=== PATIENT | male | born 1990 | race Caucasian/White ===

== ENCOUNTER 2022-11-04 12:20 | Emergency (ER) | payer OTHER ==
[~2022-11-04 12:20] MED LIST: VANCOMYCIN 1,500 MG in SODIUM CHLORIDE 0.9% 500 ML 500 ML IVPB SCH
[2022-11-04 12:28] VITALS: RESP 22; TEMP 98.1
[2022-11-04] MEDS ORDERED: VANCOMYCIN IV PER PHARMACY 1 EACH MISC MISCELLANE PRN (12:31)
[2022-11-04] MEDS ORDERED: AMPICILLIN-SULBACTAM 3 GM in SODIUM CHLORIDE 0.9% 100 ML IVPB STA (12:31)
[2022-11-04] MEDS ORDERED: DEXAMETHASONE SOD PHOSPHATE 10 MG/ML 1 ML VIAL IVP STA (12:31)
[2022-11-04] MEDS ORDERED: SODIUM CHLORIDE 0.9% 1,000 ML IV ONE (12:35)
[2022-11-04] MEDS ORDERED: SODIUM CHLORIDE 0.9% 500 ML 500 ML IV ONE (12:35)
[2022-11-04] MEDS ORDERED: SODIUM CHLORIDE 0.9% 1,000 ML IV SCH (12:45)
[2022-11-04] MEDS ORDERED: VANCOMYCIN 1,500 MG in SODIUM CHLORIDE 0.9% 500 ML 500 ML IVPB ONE (12:45)
[2022-11-04 12:48] LABS: HGB 16.9 gm/dL (13.0-17.5); MCH 31.7 pg (25.0-35.0); MCHC 35.2 g/dL (31.0-37.0); MCV 90.1 fL (80.0-100.0); Mean Platelet Volume 9.5; Platelet Count 138 k/uL (150-450); RBC 5.32 m/uL (4.30-5.90); WBC 29.3 k/uL (3.8-10.6)
--- NOTE | 2022-11-04 13:01 | ED ---
ENT HPI - General Source: patient, family, RN notes reviewed Mode of arrival: ambulatory Limitations: no limitations <Bossman You - Last Filed: 11/04/22 14:26> - General Source: patient, family Limitations: no limitations - History of Present Illness MD complaint: tooth pain, difficulty swallowing, other (Swelling of the head and face) -: days(s) (Worse today) Severity: severe Context- Dental: history of dental caries, poor dental care Associated Symptoms: toothache (Resolved) <Woody Owusu - Last Filed: 11/04/22 15:42> - General Chief complaint: Dental/Oral Stated complaint: Facial swelling Time Seen by Provider: 11/04/22 12:24 - History of Present Illness Initial comments: 32-year-old male presents emergency Department chief complaint of facial swelling, facial pain. Patient states that he has very poor dentition states that he started with an infection proximally 4 days ago but states there was in his lower jaw region but now has significant swelling on the left side of his face he states he notices breathing is change and became very harsh. Patient states that he is not having difficulty breathing no currently. Patient reports no reported fever there is some drainage from his mouth. Patient states he feels swelling down into his chest. Patient has known drug ALLERGIES. Patient states that he attempted go to work today because he felt that was not apparent. Patient also complains of this infection off. He states it seemed to change today from the emergency department. (Bossman You) - Related Data Home Medications Medication Instructions Recorded Confirmed No Known Home Medications 11/04/22 11/04/22 Allergies Allergy/AdvReac Type Severity Reaction Status Date / Time No Known Allergies Allergy Verified 11/04/22 13:37 Review of Systems ROS Other: All systems not noted in ROS Statement are negative. <Bossman You - Last Filed: 11/04/22 14:26> ROS Other: All systems not noted in ROS Statement are negative. Constitutional: Denies: fever Eyes: Denies: eye pain ENT: Reports: as per HPI, dental pain. Denies: ear pain Respiratory: Reports: as per HPI, dyspnea Cardiovascular: Denies: chest pain Endocrine: Denies: fatigue Gastrointestinal: Denies: abdominal pain <Woody Owusu - Last Filed: 11/04/22 15:42> ROS Statement: Those systems with pertinent positive or pertinent negative responses have been documented in the HPI. Past Medical History Additional Past Medical History / Comment(s): ADHD, dental disease History of Any Multi-Drug Resistant Organisms: None Reported Past Surgical History: No Surgical Hx Reported Past Psychological History: No Psychological Hx Reported Smoking Status: Current every day smoker Past Alcohol Use History: Occasional Past Drug Use History: Marijuana <Bossman You - Last Filed: 11/04/22 14:26> General Exam Limitations: no limitations General appearance: alert, in no apparent distress Head exam: Present: atraumatic, normocephalic, normal inspection Eye exam: Present: normal appearance, PERRL, EOMI. Absent: scleral icterus, conjunctival injection, periorbital swelling ENT exam: Present: mucous membranes moist, other. Absent: normal oropharynx (Edentulous, there is significant swelling the left side of his face, cheek, mandibular region there is no sublingual tenderness or notable abscess. There is tenderness of the face there is some purulent drainage noted in the mouth.) Neck exam: Present: tenderness, lymphadenopathy, other. Absent: normal inspection (Swelling noted), meningismus Respiratory exam: Present: normal lung sounds bilaterally, stridor, chest wall tenderness, other. Absent: respiratory distress, wheezes, rales, rhonchi Cardiovascular Exam: Present: normal rhythm, tachycardia, normal heart sounds. Absent: systolic murmur, diastolic murmur, rubs, gallop, clicks <Bossman You - Last Filed: 11/04/22 14:26> General appearance: alert Eye exam: Present: normal appearance ENT exam: Present: other (Patient does have significant left mandibular swelling that extends to the submental region.) Neck exam: Present: other (Patient does have swelling, and the submental region and anterior neck extending towards the chest) Respiratory exam: Present: other (Patient does have some mild stridor) <Woody Owusu - Last Filed: 11/04/22 15:42> Course <Bossman You - Last Filed: 11/04/22 14:26> <Woody Owusu - Last Filed: 11/04/22 15:42> Vital Signs 11/04/22 11/04/22 11/04/22 12:21 13:00 14:20 Temperature 98.1 F Pulse Rate 131 H 102 H Respiratory 22 22 Rate Blood Pressure 103/74 138/117 O2 Sat by Pulse 97 98 Oximetry Fraction of 100 Inspired Oxygen (FIO2) 11/04/22 14:28 Temperature Pulse Rate Respiratory Rate Blood Pressure O2 Sat by Pulse Oximetry Fraction of 100 Inspired Oxygen (FIO2) - Reevaluation(s) Reevaluation #1: Patient was immediately evaluated, started on IV antibodies, Decadron, IV fluids, labs CT was ordered 11/04/22 13:56 (Bossman You) 11/04/22 13:38 Patient was seen immediately after being evaluated by physician financial legal assistant. Case was discussed with ENT, Dr. Angel who does agree with care at this time and computed tomography scan. He does request call back. Case was again discussed with Dr. Angel who agrees with antibiotic coverage. He does again recommend transfer. Case discussed with Dr. Cowart with anesthesiology who will come evaluate 11/04/22 13:46 SUPERVISORY NOTE: I have reviewed all documentation, results, and performed the MDM in its entirety, which constitutes a substantive portion of the visit. I did speak with Dr. Gonzales from [facility] who will accept transfer. 11/04/22 14:24 Patient did have awake intubation by anestesia 11/04/22 15:39 I was prepared for emergent cricothyrotomy if necessary and was present during intubation. Total critical care time provided by myself 33 minutes (Woody Owusu) Medical Decision Making - Lab Data Result diagrams: 11/04/22 12:25 11/04/22 12:25 - EKG Data -: EKG Interpreted by Mo <Bossman You - Last Filed: 11/04/22 14:26> - Lab Data Result diagrams: 11/04/22 12:25 11/04/22 12:25 <Woody Owusu - Last Filed: 11/04/22 15:42> - Medical Decision Making Was pt. sent in by a medical professional or institution (, PA, TITLE CAMERA OPERATOR, urgent care, hospital, or senior living...) When possible be specific @ -No Did you speak to anyone other than the patient for history (EMS, parent, family, police, friend...)? What history was obtained from this source @ -Mother providing past medical history Did you review nursing and triage notes (agree or disagree)? Why? @ -I reviewed and agree with nursing and triage notes Were old charts reviewed (outside hosp., previous admission, EMS record, old EKG , old radiological studies, urgent care reports/EKG's, senior living records)? Report findings @ -No old charts were reviewed Differential Diagnosis (chest pain, altered mental status, abdominal pain women, abdominal pain men, vaginal bleeding, weakness, fever, dyspnea, syncope, headache, dizziness, GI bleed, back pain, seizure, CVA, palpatations, mental health, musculoskeletal)? @ -Ludwigs angina, dental abscess, cellulitis, airway compromise, EKG interpreted by me (3pts min.). @ -As above X-rays interpreted by me (1pt min.). @ -Chest x-ray shows post intubation CT interpreted by me (1pt min.). @ -CT soft tissue shows diffuse soft tissue cellulitis with left facial extension and into the base of the tongue, left parapharyngeal space concerning for necrotizing infection, there is airway compromise at the level of the thyroid cartilage there is an abscess at the level of the left masseter U/S interpreted by me (1pt. min.). @ -None done What testing was considered but not performed or refused? (CT, X-rays, U/S, labs)? Why? @ -None What meds were considered but not given or refused? Why? @ -None Did you discuss the management of the patient with other professionals (professionals i.e. , PA, TITLE CAMERA OPERATOR, lab, RT, psych nurse, social work manager, budget controller, teacher, animal park code enforcement officer, casework manager)? Give summary @ -ENT for consult regarding patient's facial swelling, airway compromise. Case also discussed with anesthesia, [facility] for transfer for ENT, [facility] Was smoking cessation discussed for >3mins.? @ -No Was critical care preformed (if so, how long)? @ -35mins Were there social determinants of health that impacted care today? How? (Homelessness, low income, unemployed, alcoholism, drug addiction, transportation, low edu. Level, literacy, decrease access to med. care, long-term, rehab)? @ -No Was there de-escalation of care discussed even if they declined (Discuss DNR or withdrawal of care, Hospice)? DNR status @ -No What co-morbidities impacted this encounter? (DM, HTN, Smoking, COPD, CAD, Cancer, CVA, ARF, Chemo, Hep., AIDS, mental health diagnosis, sleep apnea, morbid obesity)? @ -None Was patient admitted / discharged? Hospital course, mention meds given and route, prescriptions, significant lab abnormalities, going to OR and other pert inent info. @ -Transferred to [facility] - immediately upon arrival to the emergency department room patient was evaluated and was noted to have some stridorous breathing, patient noted to have significant swelling of the left side of his face, submandibular submental space patient immediately had IV placed in which IV antibiotics were ordered including Unasyn, vancomycin and Decadron was given secondary to swelling and concern for airway swelling. Patient was not complaining of any difficulty breathing at that time other than the harsh sound. Patient did have full set of labs, CT ordered medications were started patient sent to CT. CT shows extensive abscess, facial swelling, necrotizing infection. My attending Dr. Owusu stated immediately that the patient and contacted ENT after evaluation and discuss case twice with ENT. Case is discussed with [facility] for admission. Anesthesia was contacted regarding patient's airway for intubation given airrway swelling, and compromise. Patient was intubated by anesthesia there was complete occlusion of airway Undiagnosed new problem with uncertain prognosis? @ -YES] Drug Therapy requiring intensive monitoring for toxicity (Heparin, Nitro, Insulin, Cardizem)? @ -No Were any procedures done? @ -No Diagnosis/symptom? @ -Necrotizing facial infection Acute, or Chronic, or Acute on Chronic? @ -Acute Uncomplicated (without systemic symptoms) or Complicated (systemic symptoms)? @ -Complicated Side effects of treatment? @ -No Exacerbation, Progression, or Severe Exacerbation? @ -No Poses a threat to life or bodily function? How? (Chest pain, USA, SD, pneumonia, PE, COPD, DKA, ARF, appy, cholecystitis, CVA, Diverticulitis, Homicidal, Suicidal, threat to staff... and all critical care pts) @ -Yes patient has necrotizing facial infection Diagnosis/symptom? @ -Dental abscess Acute, or Chronic, or Acute on Chronic? @ -Acute Uncomplicated (without systemic symptoms) or Complicated (systemic symptoms)? @ -Complicated Side effects of treatment? @ -none Exacerbation, Progression, or Severe Exacerbation @ -no Poses a threat to life or bodily function? @ -Yes Diagnosis/symptom? @ -Airway compromise Acute, or Chronic, or Acute on Chronic? @ -Acute Uncomplicated (without systemic symptoms) or Complicated (systemic symptoms)? @ -Complicated Side effects of treatment? @ -none Exacerbation, Progression, or Severe Exacerbation] @ -no Poses a threat to life or bodily function? @ -Yes (Bossman You) - Lab Data Lab Results 11/04/22 11/04/22 11/04/22 Range/Units 12:25 12:25 12:25 WBC 29.3 H (3.8-10.6) k/uL RBC 5.32 (4.30-5.90) m/uL Hgb 16.9 (13.0-17.5) gm/dL Hct 48.0 (39.0-53.0) % MCV 90.1 (80.0-100.0) fL MCH 31.7 (25.0-35.0) pg MCHC 35.2 (31.0-37.0) g/dL RDW 12.0 (11.5-15.5) % Plt Count 138 L (150-450) k/uL MPV 9.5 Neutrophils % (Manual) 78 % Band Neuts % (Manual) 14 % Lymphocytes % (Manual) 3 % Monocytes % (Manual) 4 % Myelocytes % 1 % Neutrophils # (Manual) 26.90 H (1.3-7.7) k/uL Lymphocytes # (Manual) 0.88 L (1.0-4.8) k/uL Monocytes # (Manual) 1.17 H (0-1.0) k/uL Myelocytes # (Manual) 0.29 H (0) k/uL Nucleated RBCs 0 (0-0) /100 WBC Manual Slide Review Performed Toxic Granulation Present Toxic Vacuolation Present Sodium 139 (137-145) mmol/L Potassium 3.3 L (3.5-5.1) mmol/L Chloride 94 L (98-107) mmol/L Carbon Dioxide 31 H (22-30) mmol/L Anion Gap 14 mmol/L BUN 37 H (9-20) mg/dL Creatinine 1.55 H (0.66-1.25) mg/dL Est GFR (CKD-EPI)AfAm 68 (>60 ml/min/1.73 sqM) Est GFR (CKD-EPI)NonAf 59 (>60 ml/min/1.73 sqM) Glucose 112 H (74-99) mg/dL Lactic Ac Sepsis Rflx Plasma Lactic Acid Gurvinder 3.5 H* (0.7-2.0) mmol/L Calcium 9.2 (8.4-10.2) mg/dL Total Bilirubin 1.7 H (0.2-1.3) mg/dL AST 37 (17-59) U/L ALT 24 (4-49) U/L Alkaline Phosphatase 83 (38-126) U/L Total Protein 7.0 (6.3-8.2) g/dL Albumin 4.1 (3.5-5.0) g/dL 11/04/22 Range/Units 13:09 WBC (3.8-10.6) k/uL RBC (4.30-5.90) m/uL Hgb (13.0-17.5) gm/dL Hct (39.0-53.0) % MCV (80.0-100.0) fL MCH (25.0-35.0) pg MCHC (31.0-37.0) g/dL RDW (11.5-15.5) % Plt Count (150-450) k/uL MPV Neutrophils % (Manual) % Band Neuts % (Manual) % Lymphocytes % (Manual) % Monocytes % (Manual) % Myelocytes % % Neutrophils # (Manual) (1.3-7.7) k/uL Lymphocytes # (Manual) (1.0-4.8) k/uL Monocytes # (Manual) (0-1.0) k/uL Myelocytes # (Manual) (0) k/uL Nucleated RBCs (0-0) /100 WBC Manual Slide Review Toxic Granulation Toxic Vacuolation Sodium (137-145) mmol/L Potassium (3.5-5.1) mmol/L Chloride (98-107) mmol/L Carbon Dioxide (22-30) mmol/L Anion Gap mmol/L BUN (9-20) mg/dL Creatinine (0.66-1.25) mg/dL Est GFR (CKD-EPI)AfAm (>60 ml/min/1.73 sqM) Est GFR (CKD-EPI)NonAf (>60 ml/min/1.73 sqM) Glucose (74-99) mg/dL Lactic Ac Sepsis Rflx Y Plasma Lactic Acid Gurvinder (0.7-2.0) mmol/L Calcium (8.4-10.2) mg/dL Total Bilirubin (0.2-1.3) mg/dL AST (17-59) U/L ALT (4-49) U/L Alkaline Phosphatase (38-126) U/L Total Protein (6.3-8.2) g/dL Albumin (3.5-5.0) g/dL - EKG Data EKG Comments: EKG performed at 12:32 sinus tachycardia with a rate of 127 AR 163 QRS 87 QT status QTC 335/410 (Bossman You) Disposition Is patient prescribed a controlled substance at d/c from ED?: No Time of Disposition: 13:58 - Out of Hospital Transfer - Req. Specs Out of Hospital Transfer - Requested Specifics: Other Emergency Center ([facility]) <Bossman You - Last Filed: 11/04/22 14:26> <Woody Owusu - Last Filed: 11/04/22 15:42> Clinical Impression: Necrotizing subcutaneous infection, Dental abscess, Airway compromise, Cervical lymphadenopathy Disposition: OTHER INSTITUTION NOT DEFINED Condition: Fair Referrals: None,Stated [Primary Care Provider] - 1-2 days
[2022-11-04 13:03] LABS: ALT 24 U/L (4-49); AST 37 U/L (17-59); African American GFR (CKD) 68 (>60 ml/min/1.73 sqM); Albumin 4.1 g/dL (3.5-5.0); Alkaline Phosphatase 83 U/L (38-126); Anion Gap 14 mmol/L; Blood Urea Nitrogen 37 mg/dL (9-20); Calcium 9.2 mg/dL (8.4-10.2); Carbon Dioxide 31 mmol/L (22-30); Chloride 94 mmol/L (98-107); Glucose 112 mg/dL (74-99); Non-African American GFR(CKD) 59 (>60 ml/min/1.73 sqM); Potassium 3.3 mmol/L (3.5-5.1); Sodium 139 mmol/L (137-145); Total Bilirubin 1.7 mg/dL (0.2-1.3)
[2022-11-04 13:12] LABS: Band Neutrophils % 14 %; Lymphocytes # (M) 0.88 k/uL (1.0-4.8); Monocytes # (M) 1.17 k/uL (0-1.0); Myelocytes # (M) 0.29 k/uL (0); Myelocytes % 1 %; Neutrophils % (M) 78 %; Nucleated Red Blood Cells 0 /100 WBC (0-0); Total Cells Counted 100; Toxic Granulation Present; Toxic Vacuolation Present
[2022-11-04 13:24] VITALS: BP 138/117; PULSE 102
[2022-11-04] MEDS ORDERED: CLINDAMYCIN 900 MG in DEXTROSE 5% IN WATER 50 ML IVPB STA ×2 (13:26)
--- NOTE | 2022-11-04 13:32 | CT ---
EXAMINATION TYPE: CT soft tissue neck w con DATE OF EXAM: 11/04/2022 COMPARISON: None HISTORY: Left sided facial swelling and stridor. CT DLP: 314.5 mGycm CONTRAST: CT scan of the neck is performed with IV Contrast, patient injected with 100ml mL of Isovue 300. Contrast enhanced CT of the neck was performed from the skull base through the lung apices. There are multiple foci of soft tissue air noted along the left facial region extending into the base of the tongue bilaterally and left parapharyngeal space. There is extensive soft tissue edema noted. There is edema at the base of the tongue on the left extending into the left tonsillar pillar and pa rapharyngeal space with deviation of the airway from left to right. There is diffuse edema within the submandibular sublingual and submental space. There is near complete obstruction of the airway at th e level of the thyroid cartilage. Abscess at the level of the left masseter muscle measures 4.7 cm wi th internal foci of air. Edema extends to the strap musculature. Retropharyngeal edema noted. Epiglot tis has a normal appearance. No obvious periapical abscess noted or evidence for osteomyelitis. There is evidence of reactive adenopathy. IMPRESSION: 1. Diffuse soft tissue cellulitis with foci of air left facial region extending into the base of the tongue bilaterally and left parapharyngeal space. Correlate for necrotizing infection. 2. The airway at the level of the thyroid cartilage demonstrates near-complete obstruction. 3. Abscess at the level of the left masseter musculature. Suspect additional abscesses however multip le foci of air limits evaluation. 4. Reactive adenopathy.
[2022-11-04] MEDS ORDERED: PROPOFOL 10 MG/ML 20 ML VIAL IV ONE (14:10)
[2022-11-04] MEDS ORDERED: SUCCINYLCHOLINE CHLORIDE 200 MG/10 ML VIAL IV ONE (14:10)
[2022-11-04] MEDS ORDERED: LORazepam 2 MG/ML INJ IV PRN ×2 (14:11)
[2022-11-04] MEDS ORDERED: LIDOCAINE 1% INJ 10MG/ML (30 ML VIAL-PF) SQ ONE (14:12)
[2022-11-04] MEDS ORDERED: LIDOCAINE 2% GLYDO JELLY 11 ML APPL PO ONE (14:14)
--- NOTE | 2022-11-04 14:32 | XR ---
EXAMINATION TYPE: XR chest 1V portable DATE OF EXAM: 11/04/2022 COMPARISON: NONE HISTORY: Intubation TECHNIQUE: Single frontal view of the chest is obtained. FINDINGS: Endotracheal tube is appropriately placed with its distal tip approximately 7.2 cm from the lupe. The cardiac silhouette size is within normal limits. The osseous structures are intact. IMPRESSION: 1. Endotracheal tube is appropriately placed. No acute pulmonary disease.
[2022-11-05] MEDS ORDERED: VANCOMYCIN 1,500 MG in SODIUM CHLORIDE 0.9% 500 ML 500 ML IVPB SCH (01:15)
== END 2022-11-04 14:45 | disposition other institution (70) ==
LOC: EC 12:20
DX: K04.7 Periapical abscess without sinus (principal); L08.9 Local infection of the skin and subcutaneous tissue, unspecified; R59.0 Localized enlarged lymph nodes; F17.200 Nicotine dependence, unspecified, uncomplicated; F12.90 Cannabis use, unspecified, uncomplicated
CPT/HCPCS: 36415; 94002; 93005; 80053; 83605; 85025; 87040; 71045; 70491; 99291; 96365; 96375 ×4; 31500; J3370; J0330; J2060; J1100; J2001; J0295; J2704 ×2; Q9967